=== PATIENT | male | born 1975 | race Caucasian/White ===

== ENCOUNTER 2016-10-08 09:53 | Emergency (ER) | payer SELFPAY ==
[2016-10-08] MEDS ORDERED: DUONEB 0.5-3 MG/3 ml Neb IH ONE ×2 (10:01→10:02)
[2016-10-08 10:08] VITALS: O2SAT 100
[2016-10-08] MEDS ORDERED: solu-MEDROL 125 MG IV ONE (10:14)
[2016-10-08] MEDS ORDERED: solu-MEDROL 125 MG ONE (10:16)
--- NOTE | 2016-10-08 10:27 | ERPHSYRPT ---
- History of Present Illness Time Seen by Provider: 10/08/16 10:00 Source: patient Exam Limitations: no limitations Patient Subjective Stated Complaint: pt states he has hx of asthma and became sob with wheezing this morning. states he has had a cough for the past 1 week. Triage Nursing Assessment: pt pink, warm, dry. pt afebrile. lung sounds wheezing throughout. Timing/Duration: week(s) (1) Activities at Onset: none Severity of Dyspnea-Max: mild Severity of Dyspnea-Current: mild Possible Cause: occasional episodes, allergen exposure Modifying Factors: Improves With: activity Associated Symptoms: wheezing Allergies/Adverse Reactions: No Known Drug Allergies Allergy (Unverified 10/08/16 09:57) Home Medications: No Reportable Medications [No Reported Medications] 10/08/16 [History] Hx Tetanus, Diphtheria Vaccination/Date Given: Yes (up to date) Hx Influenza Vaccination/Date Given: Yes Hx Pneumococcal Vaccination/Date Given: No Immunizations Up to Date: Yes - Review of Systems Constitutional: No Symptoms Eyes: Tearing (with allergic sx complex) Ears, Nose, & Throat: No Symptoms Respiratory: Cough, Dyspnea, Wheezing Cardiac: No Symptoms Abdominal/Gastrointestinal: No Symptoms Genitourinary Symptoms: No Symptoms Musculoskeletal: No Symptoms Skin: No Symptoms Neurological: No Symptoms Psychological: No Symptoms Endocrine: No Symptoms Hematologic/Lymphatic: No Symptoms Immunological/Allergic: Other (pollen and trees allergies) - Past Medical History Pertinent Past Medical History: Yes Cardiac History: Hypertension Respiratory History: Asthma - Past Surgical History Past Surgical History: Yes Other Surgical History: TONSILS - Social History Smoking Status: Never smoker Exposure to second hand smoke: No Drug Use: none Patient Lives Alone: No - Nursing Vital Signs Nursing Vital Signs: Initial Vital Signs Temperature 98.0 F Temperature Source Oral Pulse Rate 93 Respiratory Rate 20 Blood Pressure 143/99 Pain Intensity 0 - Physical Exam General Appearance: mild distress Eye Exam: PERRL/EOMI Ears, Nose, Throat Exam: normal pharynx Neck Exam: normal inspection, non-tender, supple, full range of motion Respiratory Exam: airway intact, wheezing Cardiovascular/Chest Exam: normal heart sounds, regular rate/rhythm, normal peripheral pulses Abdominal/Gastrointestinal Exam: soft, normal bowel sounds Extremity Exam: non-tender, normal range of motion, normal inspection, normal capillary refill, no calf tenderness Neurologic Exam: alert, oriented x 3, cooperative Skin Exam: normal color, warm, dry SpO2 Interpretation: normal SpO2: 100 Oxygen Delivery: Room Air - Course Nursing assessment & vital signs reviewed: Yes - Radiology Exams Chest X-ray Interpretation: Discussed w/ radiologist, Negative Ordered Tests: Active Orders 24 hr Category Date Time Status IV Insertion STAT Care 10/08/16 10:14 Active Pulse Oximetry (ED) STAT Care 10/08/16 10:14 Active CHEST 2 VIEWS (PA AND LAT) Stat Exams 10/08/16 10:20 Completed Respiratory Nebulizer STAT RT 10/08/16 10:01 Completed Medication Summary Discontinued Medications Generic Name Dose Route Start Last Admin Trade Name Freq PRN Reason Stop Dose Admin Albuterol/Ipratropium 3 ml 10/08/16 10:01 10/08/16 10:03 Duoneb 0.5-3 Mg/3 Ml Neb IH 10/08/16 10:02 3 ml STAT ONE Administration Albuterol/Ipratropium Confirm 10/08/16 10:02 Duoneb 0.5-3 Mg/3 Ml Neb Administered 10/08/16 10:03 Dose 3 ml IH .STK-MED ONE Methylprednisolone Sodium Succinate 125 mg 10/08/16 10:14 10/08/16 10:17 Solu-Medrol 125 Mg IV 10/08/16 10:15 125 mg STAT ONE Administration Methylprednisolone Sodium Succinate Confirm 10/08/16 10:16 Solu-Medrol 125 Mg Administered 10/08/16 10:17 Dose 125 mg .ROUTE .STK-MED ONE - Progress Progress: improved Air Movement: good Blood Culture(s) Obtained: No Antibiotics given: No Counseled pt/family regarding: diagnosis, need for follow-up (with PCP 1 week), rad results - Departure Time of Disposition: 10:45 Departure Disposition: Home (1045) Clinical Impression: Bronchospasm, acute Condition: Stable Critical Care Time: No
--- NOTE | 2016-10-08 10:39 | XRAY ---
Indication: Short of breath. Asthma attack. Comparison: None PA/lateral chest demonstrates normal heart, lungs, and bony thorax.
[2016-10-08 10:56] VITALS: BP 152/92; PULSE 94
== END 2016-10-08 11:10 | disposition home or self-care (01) ==
LOC: ED 09:53
DX: J98.01 Acute bronchospasm (principal)
CPT/HCPCS: 36000; 71020; 94640; 94760; 96374; 99283; J2930

== ENCOUNTER 2017-01-12 21:32 | Emergency (ER) | payer BC ==
[2017-01-12] MEDS ORDERED: DUONEB 0.5-3 MG/3 ml Neb IH ONE ×2 (22:40→22:50)
[2017-01-12] MEDS ORDERED: solu-MEDROL 125 MG IV ONE (22:40)
[2017-01-12] MEDS ORDERED: solu-MEDROL 125 MG ONE (22:45)
--- NOTE | 2017-01-12 22:45 | ERPHSYRPT ---
- History of Present Illness Time Seen by Provider: 01/12/17 22:42 Source: patient Exam Limitations: no limitations Patient Subjective Stated Complaint: Pt sts started using arnity ellipta inhaler last night. Sts that since using it he has felt increasingly short of breath. Sts has only used it x 1. Sts used his ventolin rescue inhaler but did not feel relief from it. Pt sts tightness in chest worsening with inspiration, movement, coughing. Triage Nursing Assessment: Pt alert, oriented, answers all questions appropriately. Skin p/w/d, resps non-labored. Pt ambulatory to tx room, steady gait noted. Pt speaking in full sentences without difficulty. Lung sounds CTA bilat non-labored. No wheezes, rales, rhonchi noted. Physician History: This 41-year-old white male with history of asthma seasonal allergies. Patient arrives with complaint of shortness of breath tightness with breathing symptoms since using a new inhaler which she was given yesterday. He states that he is not getting any relief with using his albuterol inhaler he denies any chest pain no nausea no vomiting no fevers. Past medical history includes asthma, seasonal allergies. Timing/Duration: yesterday Activities at Onset: none Severity of Dyspnea-Max: moderate Severity of Dyspnea-Current: moderate Possible Cause: allergen exposure Modifying Factors: Improves With: nothing, albuterol nebulizer Associated Symptoms: constant, cough, wheezing, No intermittent, No anxiety, No chest pain/discomfort, No edema, No fever, No insomnia, No loss of appetite, No lightheadedness, No weakness, No ankle swelling, No chills, No hemoptysis, No calf pain, No dizziness, No heaviness, No heart racing, No lightheadedness, No leg swelling, No muscle spasms feet, No muscle spasms hands, No painful breathing, No productive cough, No sweating, No tightness, No tingling face, No tingling hands International travel in last 2 weeks: No Allergies/Adverse Reactions: No Known Drug Allergies Allergy (Unverified 10/08/16 09:57) Hx Tetanus, Diphtheria Vaccination/Date Given: Yes (up to date) Hx Influenza Vaccination/Date Given: Yes Hx Pneumococcal Vaccination/Date Given: No Immunizations Up to Date: Yes - Review of Systems Constitutional: No Fever, No Chills Eyes: No Symptoms Ears, Nose, & Throat: No Symptoms Respiratory: Cough, Dyspnea, Wheezing, No Cyanosis, No Stridor Cardiac: No Chest Pain, No Edema, No Syncope Abdominal/Gastrointestinal: No Abdominal Pain, No Nausea, No Vomiting, No Diarrhea Genitourinary Symptoms: No Dysuria Musculoskeletal: No Back Pain, No Neck Pain Skin: No Rash Neurological: No Dizziness, No Focal Weakness, No Sensory Changes Psychological: No Symptoms Endocrine: No Symptoms All Other Systems: Reviewed and Negative - Past Medical History Pertinent Past Medical History: Yes Cardiac History: Hypertension Respiratory History: Asthma Other Medical History: seasonal allergies - Past Surgical History Past Surgical History: No Other Surgical History: TONSILS - Social History Smoking Status: Never smoker Exposure to second hand smoke: No Drug Use: none Patient Lives Alone: No - Nursing Vital Signs Nursing Vital Signs: Initial Vital Signs Temperature 97.8 F Temperature Source Oral Pulse Rate 84 Respiratory Rate 16 Blood Pressure [] 122/84 Pain Intensity 6 - Physical Exam General Appearance: no apparent distress, alert Eye Exam: PERRL/EOMI Ears, Nose, Throat Exam: hearing grossly normal, normal ENT inspection, normal pharynx, No abnormal TM (R), No abnormal TM (L), No sinus pain/drainage, No hearing decreased, No nasal congestion, No pharyngeal erythema, No tonsillar exudate, No tonsillar swelling Neck Exam: normal inspection, supple Respiratory Exam: normal breath sounds, airway intact, diminished breath sounds , pleural rub, No chest tenderness, No lungs clear, No respiratory distress, No accessory muscle use, No prolonged expirations, No crackles/rales, No rhonchi Cardiovascular/Chest Exam: normal heart sounds, regular rate/rhythm Abdominal/Gastrointestinal Exam: soft, No tenderness, No distention, No mass Extremity Exam: non-tender, normal range of motion, normal inspection, no calf tenderness, no pedal edema Peripheral Pulses Exam: dorsalis-pedis (R): 2+, dorsalis-pedis (L): 2+ Neurologic Exam: alert, oriented x 3, cooperative, operations and intelligence assistant II-XII nml as tested, sensation nml, No motor deficits Skin Exam: normal color, warm, No dry SpO2 Interpretation: normal (98%) SpO2: 98 Oxygen Delivery: Room Air - Course Nursing assessment & vital signs reviewed: Yes EKG Interpreted by Me: RATE (70 bpm), Sinus Rhythm, NORMAL AXIS, Other (EKG normal sinus rhythm 70 bpm, normal axis, no acute ST or T wave changes noted) - Radiology Exams Chest X-ray Interpretation: Interpreted by me, Negative, No Pneumonia, No Infiltrates , Other (no active disease process noted) Ordered Tests: Active Orders 24 hr Category Date Time Status Repertoire Manager STAT Care 01/12/17 22:40 Active EKG-ER Only STAT Care 01/12/17 22:40 Active IV Insertion STAT Care 01/12/17 22:40 Active CHEST 1 VIEW (PORTABLE) Stat Exams 01/12/17 22:41 Taken CBC W DIFF Stat Lab 01/12/17 22:00 Completed CMP Stat Lab 01/12/17 22:00 Completed Respiratory Nebulizer STAT RT 01/12/17 22:42 Completed Medication Summary Discontinued Medications Generic Name Dose Route Start Last Admin Trade Name Freq PRN Reason Stop Dose Admin Albuterol/Ipratropium 3 ml 01/12/17 22:40 01/12/17 22:53 Duoneb 0.5-3 Mg/3 Ml Neb IH 01/12/17 22:41 3 ml STAT ONE Administration Albuterol/Ipratropium Confirm 01/12/17 22:50 Duoneb 0.5-3 Mg/3 Ml Neb Administered 01/12/17 22:51 Dose 3 ml IH .STK-MED ONE Azithromycin 500 mg 01/12/17 23:47 Zithromax 250 Mg Tablet PO 01/12/17 23:48 STAT ONE Methylprednisolone Sodium Succinate 125 mg 01/12/17 22:40 01/12/17 22:48 Solu-Medrol 125 Mg IV 01/12/17 22:41 125 mg STAT ONE Administration Methylprednisolone Sodium Succinate Confirm 01/12/17 22:45 Solu-Medrol 125 Mg Administered 01/12/17 22:46 Dose 125 mg .ROUTE .STK-MED ONE Lab/Rad Data: Laboratory Result Diagrams 01/12/17 22:00 01/12/17 22:00 Laboratory Results 01/12/17 01/12/17 Range/Units 22:00 22:00 WBC 6.5 (4.0-10.5) K/mm3 RBC 5.03 (4.1-5.6) M/mm3 Hgb 15.1 (12.5-18.0) gm/dl Hct 44.6 (42-50) % MCV 88.7 (78-100) fl MCH 30.0 (26-32) pg MCHC 33.9 (32-36) g/dl RDW 13.2 (11.5-14.0) % Plt Count 197 (150-450) K/mm3 MPV 12.0 H (6-9.5) fl Gran % 56.7 (36.0-66.0) % Lymphocytes % 29.9 (24.0-44.0) % Monocytes % 9.5 (0.0-12.0) % Eosinophils % 3.7 (0.00-5.0) % Basophils % 0.2 (0.0-0.4) % Basophils # 0.01 (0-0.4) Sodium 141 (136-145) mEq/L Potassium 4.2 (3.5-5.1) mEq/L Chloride 103 (98-107) mEq/L Carbon Dioxide 27.4 (21-32) mEq/L Anion Gap 15.2 H (5-15) MEQ/L BUN 14 (9-20) mg/dL Creatinine 1.49 H (0.55-1.30) mg/dl Estimated GFR 56 ML/MIN Glucose 132 H (70-110) MG/DL Calcium 9.1 (8.5-10.1) mg/dL Total Bilirubin 1.1 H (0.2-1.0) mg/dL AST 37 (15-37) U/L ALT 83 H (12-78) U/L Alkaline Phosphatase 107 (46-116) U/L Serum Total Protein 7.3 (6.4-8.2) gm/dL Albumin 4.2 (3.4-5.0) g/dL - Progress Progress: improved Air Movement: fair Progress Note: 01/12/17 23:41 Patient feeling markedly improved after DuoNeb treatment and Solu-Medrol IV. EKG no acute changes chest x-ray no acute disease process noted. Will have patient stop his new inhaler, place patient on tapering dose of prednisone and Zithromax, and have him continue albuterol inhaler. - Departure Time of Disposition: 23:42 Departure Disposition: Home Clinical Impression: Reaction, drug, adverse Asthma with exacerbation Qualifiers: Asthma severity: unspecified severity Qualified Code(s): J45.901 - Unspecified asthma with (acute) exacerbation Condition: Fair Critical Care Time: No Referrals: GIO JERNIGAN [Primary Care Provider] - Additional Instructions: Return home, rest, plenty of fluids. Tapering dose of prednisone as directed. Zithromax Z-CLIVE as directed. Use your albuterol inhaler 2 puffs every 4-6 hours as needed. StopArnity-elipta inhaler Follow-up with your family doctor. Return for acute distress or for severe symptoms Prescriptions: Azithromycin 250 mg [Zithromax 250 MG TABLET] 0 mg PO ZPACK #6 tablet
[2017-01-12 22:47] LABS: BASOPHIL % 0.2 % (0.0-0.4); Eosinophil % 3.7 % (0.00-5.0); Granulocytes % 56.7 % (36.0-66.0); Lymphocytes % 29.9 % (24.0-44.0); Mean Cell Volume 88.7 fl (78-100); Monocytes % 9.5 % (0.0-12.0); Platelet Count 197 K/mm3 (150-450); Red Blood Count 5.03 M/mm3 (4.1-5.6); Red Cell Distribution Width 13.2 % (11.5-14.0); White Blood Count 6.5 K/mm3 (4.0-10.5)
[2017-01-12 22:56] LABS: ALBUMIN 4.2 g/dL (3.4-5.0); ANION GAP 15.2 MEQ/L (5-15); BILIRUBIN,TOTAL 1.1 mg/dL (0.2-1.0); Carbon Dioxide 27.4 mEq/L (21-32); Potassium 4.2 mEq/L (3.5-5.1); Total Protein 7.3 gm/dL (6.4-8.2)
[2017-01-12] MEDS ORDERED: Zithromax 250 MG TABLET PO ONE (23:47)
[2017-01-12] MEDS ORDERED: Zithromax 250 MG TABLET ONE (23:53)
[2017-01-13 00:05] VITALS: BP 133/84; PULSE 69; O2SAT 97
--- NOTE | 2017-01-13 09:53 | XRAY ---
Indication: Short of breath. Comparison: October 08 Portable chest again demonstrates normal heart, lungs, and bony thorax.
== END 2017-01-13 00:15 | disposition home or self-care (01) ==
LOC: ED 21:32
DX: J45.901 Unspecified asthma with (acute) exacerbation (principal); T50.905A Adverse effect of unspecified drugs, medicaments and biological substances, initial encounter
CPT/HCPCS: 36000; 36415; 71010; 80053; 85025; 93005; 93041; 94640; 96374; 99284; J2930; A9270-GY

== ENCOUNTER 2021-06-13 12:15 | Emergency (ER) | payer SELFPAY ==
[2021-06-13] MEDS ORDERED: Sodium Chloride 0.9% 1000 ML 1,000 ML IV SCH (12:30)
[2021-06-13] MEDS ORDERED: Sodium Chloride 0.9% 1000 ML 1,000 ML ONE (12:51)
--- NOTE | 2021-06-13 13:02 | ERPHSYRPT ---
- History of Present Illness Time Seen by Provider: 06/13/21 12:30 Source: patient Exam Limitations: no limitations Patient Subjective Stated Complaint: Pt c/o of cough, chest hurting when coughs, abdominal pain, diarrhea for the past 9 days Triage Nursing Assessment: Pt sent to the ER by Dr. Espinosa to be evaluated, vitals wnl, rates pain as 5/10, dry unproductive cough, skin n/w/d, positive for covid, abdominal pain with diarrhea, denies vomiting, doesn't appear to be in any distress Physician History: Patient is a 45-year-old male presents to our ED for evaluation of chest pain and abdominal pain. Patient is Covid positive. He states he has been coughing excessively. The cough has been making his chest and abdomen sore. Patient has been experiencing diarrhea as well. Symptoms are constant. Patient went to his primary care doctor today. Patient was sent to our ED for evaluation. No other symptoms. Patient is otherwise healthy. He is a non-smoker. No shortness of breath. Patient voices no other complaints or concerns at this time. Timing/Duration: day(s) (2 days.) Severity: moderate Modifying Factors: Improves With: nothing Associated Symptoms: cough, chest pain, No nausea, No vomiting, No shortness of breath Allergies/Adverse Reactions: No Known Drug Allergies Allergy (Verified 06/13/21 12:37) Home Medications: No Reportable Medications [No Reported Medications] 06/13/21 [History] Hx Tetanus, Diphtheria Vaccination/Date Given: Yes (up to date) Hx Influenza Vaccination/Date Given: Yes Hx Pneumococcal Vaccination/Date Given: No Travel Risk - International Travel Have you traveled outside of the country in past 3 weeks: No - Coronavirus Screening Are you exhibiting any of the following symptoms?: Yes Symptoms: Cough: New Onset, Shortness of Breath, Vomiting/Diarrhea, Headaches/Body Aches/Fatigue - Vaccine Status Have you recieved a Covid-19 vaccination: No - Review of Systems Constitutional: No Symptoms, No Fever, No Chills Eyes: No Symptoms Ears, Nose, & Throat: No Symptoms Respiratory: No Symptoms, No Cough, No Dyspnea Cardiac: No Symptoms, No Chest Pain, No Edema, No Syncope Abdominal/Gastrointestinal: No Symptoms, No Abdominal Pain, No Nausea, No Vomiting, No Diarrhea Genitourinary Symptoms: No Symptoms, No Dysuria Musculoskeletal: No Symptoms, No Back Pain, No Neck Pain Skin: No Symptoms, No Rash Neurological: No Symptoms, No Dizziness, No Focal Weakness, No Sensory Changes Psychological: No Symptoms Endocrine: No Symptoms Hematologic/Lymphatic: No Symptoms Immunological/Allergic: No Symptoms All Other Systems: Reviewed and Negative - Past Medical History Pertinent Past Medical History: Yes Cardiac History: Hypertension Respiratory History: Asthma Other Medical History: seasonal allergies - Past Surgical History Past Surgical History: Yes Other Surgical History: . - Social History Smoking Status: Never smoker Exposure to second hand smoke: No Drug Use: none Patient Lives Alone: No - Nursing Vital Signs Nursing Vital Signs: Initial Vital Signs Temperature 98.6 F 06/13/21 12:24 Pulse Rate 85 06/13/21 12:24 Respiratory Rate 21 06/13/21 12:24 Blood Pressure 138/89 06/13/21 12:24 O2 Sat by Pulse Oximetry 100 06/13/21 12:24 Pain Scale Pain Intensity 0 - Physical Exam General Appearance: no apparent distress, alert Eye Exam: PERRL/EOMI, eyes nml inspection Ears, Nose, Throat Exam: normal ENT inspection, TMs normal, pharynx normal, moist mucous membranes Neck Exam: normal inspection, non-tender, supple, full range of motion Respiratory Exam: normal breath sounds, lungs clear, No respiratory distress Cardiovascular Exam: regular rate/rhythm, normal heart sounds, normal peripheral pulses Gastrointestinal/Abdomen Exam: soft, normal bowel sounds, other (Per umbilical tenderness to palpation. Pain just to the right of the umbilicus. Overlying soft tissue intact. No signs of trauma.), No tenderness, No mass Back Exam: normal inspection, normal range of motion, No CVA tenderness, No vertebral tenderness Extremity Exam: normal inspection, normal range of motion, pelvis stable Neurologic Exam: alert, oriented x 3, cooperative, normal mood/affect, sensation nml, No motor deficits Skin Exam: normal color, warm, dry, No rash Lymphatic Exam: No adenopathy SpO2 Interpretation: normal SpO2: 100 O2 Delivery: Room Air - Course Nursing assessment & vital signs reviewed: Yes - CT Exams Chest CT Interpretation: Tele-radiologist Report (Negative for PE. Diffuse bilateral peripheral airspace disease consistent with COVID-19 pneumonia.) Ordered Tests: Active Orders 24 hr Category Date Time Status Career And Technology Education Teacher STAT Care 06/13/21 12:25 Active EKG-ER Only STAT Care 06/13/21 12:24 Active IV Insertion STAT Care 06/13/21 12:24 Active Pulse Oximetry (ED) STAT Care 06/13/21 12:24 Active ABDOMEN AND PELVIS W CONTRAST [CT] Stat Exams 06/13/21 13:11 Completed CHEST WITH CONTRAST [CT] Stat Exams 06/13/21 13:23 Completed CBC W DIFF Stat Lab 06/13/21 12:42 Completed CMP Stat Lab 06/13/21 12:42 Completed D-DIMER QUANTITATIVE Stat Lab 06/13/21 12:42 Completed NT PRO BNP Stat Lab 06/13/21 12:42 Completed TROPONIN Q3H Lab 06/13/21 12:42 Completed TROPONIN Q3H Lab 06/13/21 15:30 Ordered TROPONIN Q3H Lab 06/13/21 18:30 Ordered TROPONIN Q3H Lab 06/13/21 21:30 Ordered TROPONIN Q3H Lab 06/14/21 00:30 Ordered Medication Summary Generic Name Dose Route Start Last Admin Trade Name Freq PRN Reason Stop Dose Admin Sodium Chloride 1,000 mls @ 100 mls/hr 06/13/21 12:30 06/13/21 12:53 Sodium Chloride 0.9% 1000 Ml IV 07/13/21 12:29 100 mls/hr .Q10H AKANKSHA Administration Discontinued Medications Generic Name Dose Route Start Last Admin Trade Name Freq PRN Reason Stop Dose Admin Dexamethasone Sodium Phosphate 8 mg 06/13/21 14:51 06/13/21 15:02 Decadron 10mg Inj. IV 06/13/21 14:52 8 mg STAT ONE Administration Dexamethasone Sodium Phosphate Confirm 06/13/21 15:00 Decadron 10mg Inj. Administered 06/13/21 15:01 Dose 10 mg .ROUTE .STK-MED ONE Lab/Rad Data: Laboratory Result Diagrams 06/13/21 12:42 06/13/21 12:42 Laboratory Results 06/13/21 06/13/21 06/13/21 Range/Units 12:42 12:42 12:42 WBC (4.0-10.5) K/mm3 RBC (4.1-5.6) M/mm3 Hgb (12.5-18.0) gm/dl Hct (42-50) % MCV (78-100) fl MCH (26-32) pg MCHC (32-36) g/dl RDW (11.5-14.0) % Plt Count (150-450) K/mm3 MPV (7.5-11.0) fl Gran % (36.0-66.0) % Eos # (Auto) (0-0.5) Absolute Lymphs (auto) (1.0-4.6) Absolute Monos (auto) (0.0-1.3) Lymphocytes % (24.0-44.0) % Monocytes % (0.0-12.0) % Eosinophils % (0.00-5.0) % Basophils % (0.0-0.4) % Absolute Granulocytes (1.4-6.9) Basophils # (0-0.4) D-Dimer 1065 H* (215-500) ng/mL Sodium 137 (137-145) mmol/L Potassium 3.8 (3.5-5.1) mmol/L Chloride 100 (98-107) mmol/L Carbon Dioxide 22 (22-30) mmol/L Anion Gap 18.1 H (5-15) MEQ/L BUN 17 (9-20) mg/dL Creatinine 1.03 (0.66-1.25) mg/dL Estimated GFR > 60.0 ML/MIN Glucose 269 H (74-106) mg/dL Calcium 8.9 (8.4-10.2) mg/dL Total Bilirubin 1.70 H (0.2-1.3) mg/dL AST 43 (17-59) U/L ALT 35 (0-50) U/L Alkaline Phosphatase 90 (38-126) U/L Troponin I < 0.012 (0.000-0.034) ng/mL NT-Pro-B Natriuret Pep 24.3 (0-450) pg/mL Serum Total Protein 7.7 (6.3-8.2) g/dL Albumin 4.4 (3.5-5.0) g/dL 06/13/21 Range/Units 12:42 WBC 4.0 (4.0-10.5) K/mm3 RBC 5.15 (4.1-5.6) M/mm3 Hgb 14.9 (12.5-18.0) gm/dl Hct 43.7 (42-50) % MCV 84.9 (78-100) fl MCH 28.9 (26-32) pg MCHC 34.1 (32-36) g/dl RDW 13.0 (11.5-14.0) % Plt Count 193 (150-450) K/mm3 MPV 10.6 (7.5-11.0) fl Gran % 64.5 (36.0-66.0) % Eos # (Auto) 0.03 (0-0.5) Absolute Lymphs (auto) 0.98 L (1.0-4.6) Absolute Monos (auto) 0.39 (0.0-1.3) Lymphocytes % 24.6 (24.0-44.0) % Monocytes % 9.8 (0.0-12.0) % Eosinophils % 0.8 (0.00-5.0) % Basophils % 0.3 (0.0-0.4) % Absolute Granulocytes 2.58 (1.4-6.9) Basophils # 0.01 (0-0.4) D-Dimer (215-500) ng/mL Sodium (137-145) mmol/L Potassium (3.5-5.1) mmol/L Chloride (98-107) mmol/L Carbon Dioxide (22-30) mmol/L Anion Gap (5-15) MEQ/L BUN (9-20) mg/dL Creatinine (0.66-1.25) mg/dL Estimated GFR ML/MIN Glucose (74-106) mg/dL Calcium (8.4-10.2) mg/dL Total Bilirubin (0.2-1.3) mg/dL AST (17-59) U/L ALT (0-50) U/L Alkaline Phosphatase (38-126) U/L Troponin I (0.000-0.034) ng/mL NT-Pro-B Natriuret Pep (0-450) pg/mL Serum Total Protein (6.3-8.2) g/dL Albumin (3.5-5.0) g/dL - Progress Progress: improved Progress Note: Patient reassessed. He is well. Patient is Covid pneumonia. Patient received a dose of Decadron. Patient ambulated throughout our ED. Oxygen saturations are within normal limits. Patient received IV fluids. He feels much better and is requesting discharge. Patient agrees to follow-up with his primary care doctor within 48 hours for reevaluation. Portions of this note were created with voice recognition technology. There may be grammatical, spelling, punctuation or sound alike errors 06/13/21 15:46 Discussed with : Patel Counseled pt/family regarding: lab results, diagnosis, need for follow-up, rad results - Departure Departure Disposition: Home Clinical Impression: Pneumonia due to COVID-19 virus, Splenomegaly, Nephrolithiasis Condition: Stable Critical Care Time: No Referrals: CRISTINA HOLLIDAY [Primary Care Provider] - Additional Instructions: Discharge/Care Plan JOSELIN ZAZUETA was seen on 06/13/21 in the Emergency Room. The patient was counseled regarding Diagnosis,Lab results, Imaging studies, need for follow up and when to return to the Emergency Room. Prescriptions given: Discharge Note I have spoken with the patient and/or caregivers. I have explained the patient's condition, diagnosis and treatment plan based on the information available to me at this time. I have answered the patient's and/or caregiver's questions and addressed any concerns. The patient and/or caregivers have as good understanding of the patient's diagnosis, condition and treatment plan as can be expected at t his point. The vital signs have been stable. The patient's condition is stable and appropriate for discharge from the emergency department. The patient will pursue further outpatient evaluation with the primary care physician or other designated or consulting physician as outlined in the discharge instructions. The patient and/or caregivers are agreeable to this plan of care and follow-up instructions have been explained in detail. The patient and/or caregivers have received these instruction. The patient/and or caregivers are aware that any significant change in condition or worsening of symptoms should prompt an immediate return to this or the closest emergency department or call 911.
[2021-06-13 13:05] LABS: Absolute Neutrophil Ct (ANC) 2.58 (1.4-6.9); BASOPHIL % 0.3 % (0.0-0.4); Basophil (Absolute #) 0.01 (0-0.4); Eosinophil % 0.8 % (0.00-5.0); Eosinophil (Absolute #) 0.03 (0-0.5); Hematocrit 43.7 % (42-50); Hemoglobin 14.9 gm/dl (12.5-18.0); Lymphocyte (Absolute #) 0.98 (1.0-4.6); Lymphocytes % 24.6 % (24.0-44.0); Mean Cell Volume 84.9 fl (78-100); Mean Corpuscular Hemoglobin 28.9 pg (26-32); Mean Corpuscular Hgb Concent. 34.1 g/dl (32-36); Mean Platelet Volume 10.6 fl (7.5-11.0); Monocyte (Absolute #) 0.39 (0.0-1.3); Monocytes % 9.8 % (0.0-12.0); Neutrophil % 64.5 % (36.0-66.0); Platelet Count 193 K/mm3 (150-450); Red Blood Count 5.15 M/mm3 (4.1-5.6)
[2021-06-13 13:22] LABS: ALBUMIN 4.4 g/dL (3.5-5.0); ALKALINE PHOSPHATASE 90 U/L (38-126); ANION GAP 18.1 MEQ/L (5-15); BLOOD UREA NITROGEN 17 mg/dL (9-20); CHLORIDE 100 mmol/L (98-107); Calcium 8.9 mg/dL (8.4-10.2); Carbon Dioxide 22 mmol/L (22-30); Creatinine 1 1.03 mg/dL (0.66-1.25); EST GLOMERULAR FILTRATION RATE > 60.0 ML/MIN; Glucose 269 mg/dL (74-106); NT PRO BNP 24.3 pg/mL (0-450); Potassium 3.8 mmol/L (3.5-5.1); SGOT/AST 43 U/L (17-59); SGPT/ALT 35 U/L (0-50); SODIUM 137 mmol/L (137-145); Total Protein 7.7 g/dL (6.3-8.2)
[2021-06-13 14:06] VITALS: BP 135/83
--- NOTE | 2021-06-13 14:12 | XRAY ---
Indication: Suspect Covid 19. Elevated d-dimer. Multiple contiguous axial images obtained through the chest using 80 cc Isovue 370 contrast and PE protocol. Comparison: None There is adequate opacification of the pulmonary arteries. However mild respiration artifact limits evaluation of the more distal lobar and segmental branches. No obvious central pulmonary embolus. Heart is not enlarged. Aorta is normal in course and caliber. Mediastinal and right hilar calcified nodes. No pathologic mediastinal/hilar lymphadenopathy. Lungs demonstrates diffuse bilateral peripheral airspace disease. No effusion. Bony thorax intact. CT abdomen/pelvis reported separately. Impression: 1. Negative pulmonary embolus. 2. Diffuse bilateral peripheral airspace disease. Commonly reported imaging features of Covid 19 pneumonia are present. Other processes such as influenza pneumonia and organizing pneumonia, as can be seen with drug toxicity and connective tissue disease, can cause a similar imaging pattern.
--- NOTE | 2021-06-13 14:14 | XRAY ---
Indication: Abdomen pain and diarrhea. Colitis. Positive Covid 19. Multiple contiguous images obtained through the abdomen and pelvis using 80 cc Isovue 370 contrast. Comparison: None CT chest reported separately. Noncontrasted stomach and bowel loops appear nonobstructed. Normal appendix. No bowel wall thickening or inflammatory changes. Spleen is enlarged measuring 14.7 cm. 5 mm nonobstructing right renal calculus. No free fluid/air. Remaining liver, gallbladder, pancreas, spleen, adrenal glands, kidneys, ureters, bladder, and aorta appear unremarkable. No pathologic retroperitoneal lymphadenopathy. Osseous structures intact. Impression: 1. Splenomegaly and nonobstructing right renal micro-calculus. 2. Remaining CT abdomen/pelvis with contrast exam is negative.
[2021-06-13] MEDS ORDERED: DECADRON 10MG INJ. IV ONE (14:51)
[2021-06-13] MEDS ORDERED: DECADRON 10MG INJ. ONE (15:00)
[2021-06-13 15:07] VITALS: PULSE 100
[2021-06-13 15:48] VITALS: O2SAT 100
== END 2021-06-13 16:02 | disposition home or self-care (01) ==
LOC: ED 12:15
DX: U07.1 COVID-19 (principal); J12.89 Other viral pneumonia
CPT/HCPCS: 36415; 71260; 74177; 80053; 83880; 84484; 85025; 85379; 93005; 93041; 94760; 96374; 99284; J1100